=== PATIENT | male | born 1995 | race American Indian/Alaskan Native ===

== ENCOUNTER 2018-01-11 14:32 | Emergency (ER) | payer SELFPAY ==
[2018-01-11] MEDS ORDERED: TORADOL IV ONE (14:54)
--- NOTE | 2018-01-11 16:21 | XRay Report ---
FINAL REPORT EXAM: XR HUMERUS 2+V LT HISTORY: arm pain TECHNIQUE: Frontal and lateral views of left humerus. PRIORS: None. FINDINGS: Transverse fracture of mid diaphysis, with mild distraction and anterior displacement, mild apex anterior and valgus angulation. No dislocation. Mild soft tissue edema. Remainder of osseous and soft tissue structures grossly unremarkable. IMPRESSION: 1. Fracture left humerus.
--- NOTE | 2018-01-11 16:22 | XRay Report ---
FINAL REPORT EXAM: XR FOREARM LT HISTORY: forearm pain TECHNIQUE: Frontal and lateral views of left forearm. PRIORS: None. FINDINGS: Fracture of midshaft humeral diaphysis again noted. No other apparent fracture or dislocation. Soft tissues grossly unremarkable. IMPRESSION: 1. Fracture left humerus.
--- NOTE | 2018-01-11 16:23 | XRay Report ---
FINAL REPORT EXAM: XR ELBOW 2V LT HISTORY: elbow pain TECHNIQUE: Frontal and oblique views of left elbow. PRIORS: None. FINDINGS: Examination limited due to patient positioning. Fracture of left midshaft humeral diaphysis again noted. No other apparent fracture or dislocation. Soft tissues grossly unremarkable. IMPRESSION: 1. Fracture left humerus.
--- NOTE | 2018-01-11 16:24 | XRay Report ---
FINAL REPORT EXAM: XR SHOULDER 1V LT HISTORY: arm pain TECHNIQUE: Single, frontal view of left shoulder. PRIORS: None. FINDINGS: Fracture of left midshaft humeral diaphysis again noted. No other apparent fracture or dislocation. Soft tissues grossly unremarkable. IMPRESSION: 1. Fracture left humerus.
[2018-01-11] MEDS ORDERED: PERCOCET 5/325 PO ONE (16:32)
[2018-01-11] MEDS ORDERED: VALIUM IV ONE (16:32)
[2018-01-11] MEDS ORDERED: VALIUM PO ONE (17:01)
--- NOTE | 2018-01-11 17:07 | Emergency Department Report ---
ED Upper Extremity Inj HPI - General Chief Complaint: Extremity Injury, Upper Stated Complaint: LEFT ARM FX Time Seen by Provider: 01/11/18 14:54 Source: patient, EMS Mode of arrival: Stretcher Limitations: No Limitations - History of Present Illness MD Complaint: Injury to:: left, arm -: minutes(s) Other Extremity Injury: Elbow: Left, Arm: Left, Forearm: Left Other Injuries: none Place: outdoors Severity scale (0 -10): 6 Improves With: immobilization Worsens With: movement of extremity Context: fall, direct blow Associated Symptoms: denies: weakness, numbness, neck pain, suspects foreign body, nausea/vomiting, heard/felt popping sensat - Related Data Previous Rx's Medication Instructions Recorded Last Taken Type HYDROcodone/APAP 7.5-325 [[place] 1 each PO Q8HR PRN #9 tablet 01/11/18 Unknown Rx 7.5/325] Ibuprofen [Motrin] 600 mg PO Q8H PRN #24 tablet 01/11/18 Unknown Rx Methocarbamol [Robaxin-750] 750 mg PO BID PRN #14 tablet 01/11/18 Unknown Rx Allergies Allergy/AdvReac Type Severity Reaction Status Date / Time No Known Allergies Allergy Unverified 01/11/18 14:55 ED Review of Systems ROS: Stated complaint: LEFT ARM FX Other details as noted in HPI Other: GENERAL: No weight change, fatigue, weakness, fever, chills, or night sweats SKIN: No changes in skin or hair, no itching, no rashes, no jaundice HEAD: No trauma, headache, or visual changes EYES: No blurriness, tearing, itching, acute visual loss, conjunctival discoloration, or scleral icterus EARS: No hearing loss, tinnitus, vertigo, or earache NOSE: No rhinorrhea, stuffiness, sneezing, itching, or epistaxis MOUTH: No bleeding gums, hoarseness, sore throat, or swelling CARDIAC: No new murmur, chest pain, palpitations, dyspnea on exertion, orthopnea , PND, or edema RESPIRATORY: No shortness of breath, wheeze, cough, sputum production, hemoptysis, pneumonia, asthma, bronchitis, or emphysema GI: No change in appetite, nausea, vomiting, dysphagia, change in bowel frequency, diarrhea, constipation, bleeding, hematemesis, melena, hematochezia, or abdominal pain URINARY: No frequency, urgency, polyuria, dysuria, hematuria, or incontinence MUSCULOSKELETAL: Left UE pain after ground level fall off of skate board. Decreased ROM due to pain. NEUROLOGIC: No loss of sensation, numbness, tingling, tremors, weakness, paralysis, seizures PSYCHIATRIC: No change in mood, no anxiety, no depression ED Past Medical Hx - Medications Home Medications: Home Medications Medication Instructions Recorded Confirmed Last Taken Type HYDROcodone/APAP 7.5-325 [[place] 1 each PO Q8HR PRN #9 tablet 01/11/18 Unknown Rx 7.5/325] Ibuprofen [Motrin] 600 mg PO Q8H PRN #24 tablet 01/11/18 Unknown Rx Methocarbamol [Robaxin-750] 750 mg PO BID PRN #14 tablet 01/11/18 Unknown Rx ED Physical Exam - General Limitations: No Limitations - Other Other exam information: GENERAL: Patient in no acute distress HEAD: Normocephalic, atraumatic EYES: PERRLA, EOM intact, no scleral icterus, visual yung and acuity wnl NOSE: No tenderness, discharge, sinus tenderness MOUTH: No erythema, bleeding, exudate HEART: Regular rate and rhythm, no murmur, S1-S2 are auscultated, pulses are symmetric LUNGS: bilateral breath sounds. No wheezing, rales, rhonchi ABDOMEN: Normal bowel sounds, no tenderness, no rebound, no guarding, no masses , no CVA tenderness MUSCULOSKELETAL: Neurovascularly intact. Decreased ROM left UE due to pain. NEUROLOGIC: GCS 15, Alert and Oriented x3, Cranial nerves intact, normal sensation, normal strength, normal gait, no cerebellar deficit PSYCHIATRIC: No homicidal or suicidal ideation, no anxiety, no depression, no hallucinations SKIN: Skin is warm and dry, no wounds, no rashes ED Course Vital Signs 01/11/18 01/11/18 01/11/18 14:51 15:00 15:15 Temperature Pulse Rate Respiratory Rate Blood Pressure 126/68 135/71 118/63 Blood Pressure [Right] O2 Sat by Pulse 99 99 Oximetry 01/11/18 01/11/18 01/11/18 15:30 15:45 16:00 Temperature Pulse Rate Respiratory Rate Blood Pressure 115/63 113/52 115/44 Blood Pressure [Right] O2 Sat by Pulse 100 87 98 Oximetry 01/11/18 01/11/18 01/11/18 16:15 16:30 16:45 Temperature Pulse Rate Respiratory Rate Blood Pressure 118/59 109/59 114/51 Blood Pressure [Right] O2 Sat by Pulse 99 99 Oximetry 01/11/18 01/11/18 01/11/18 17:01 17:15 17:26 Temperature 97.6 F Pulse Rate 90 Respiratory 18 Rate Blood Pressure 110/55 104/62 Blood Pressure 126/68 [Right] O2 Sat by Pulse 99 84 99 Oximetry - Orthopedic Splinting/Casting Injury #1 Side: left Upper Extremity Injury Location: upper arm Upper Extremity Immobilizer: sling/shoulder immobilize, sugartong splint ED Medical Decision Making - Radiology Data Radiology results: report reviewed - Medical Decision Making At 1635 Dr. Parker updated. Recommends discharge with outpatient follow up. Recommends sugar tong splint to left UE and sling. Patient comfortable. Updated with results. Plan discharge with outpatient follow up. Patient agrees with plan and will return if symptoms worsen. Critical care attestation.: If time is entered above; I have spent that time in minutes in the direct care of this critically ill patient, excluding procedure time. ED Disposition Clinical Impression: Closed left arm fracture Qualifiers: Encounter type: initial encounter Qualified Code(s): S42.302A - Unspecified fracture of shaft of humerus, left arm, initial encounter for closed fracture Fall Qualifiers: Encounter type: initial encounter Qualified Code(s): W19.XXXA - Unspecified fall, initial encounter Disposition: TO HOME OR SELFCARE Is pt being admited?: No Condition: Stable Instructions: Arm Fracture in Adults (ED), Fall Prevention (ED) Prescriptions: HYDROcodone/APAP 7.5-325 [[place] 7.5/325] 1 each PO Q8HR PRN #9 tablet PRN Reason: Pain Ibuprofen [Motrin] 600 mg PO Q8H PRN #24 tablet PRN Reason: Pain Methocarbamol [Robaxin-750] 750 mg PO BID PRN #14 tablet PRN Reason: Spasms Referrals: ANDREW PARKER MD [Staff Physician] - 2-3 Days [facility] [Outside] - 2-3 Days Time of Disposition: 17:06
[2018-01-11 17:28] VITALS: BP 126/68
[2018-01-11] MEDS ORDERED: MOTRIN PO ONE (19:13)
== END 2018-01-11 20:37 | disposition home or self-care (01) ==
LOC: ED 14:32
DX: S52.92XA Unspecified fracture of left forearm, initial encounter for closed fracture (principal); W19.XXXA Unspecified fall, initial encounter; Y93.89 Activity, other specified; Y92.89 Other specified places as the place of occurrence of the external cause; Y99.8 Other external cause status
CPT/HCPCS: 29105; 73020; 73060; 73070; 73090; 96374; 96375; 99284; J1885; J3360